=== PATIENT | male | born 1965 | race Caucasian/White ===

== ENCOUNTER 2019-01-26 07:43 | Day surgery (SDC) | payer OTHER ==
[2019-01-23 14:44] VITALS: BMI 26.4
[2019-01-26 10:19] VITALS: TEMP 97.4
[2019-01-26 15:02] VITALS: BP 113/59; PULSE 55
--- NOTE | 2019-01-27 18:39 | PATH ---
Surgical Pathology Report Patient Name: CHEVY PERRY [facility]. Rec. #: [id number] /Age/Gender: 1965 (Age: 53) / M Account: [id number] Location: [facility]-ENDOSCOPY Taken: 01/26/2019 Received: 01/26/2019 Reported: 01/27/2019 Physicians: Aníbal Benoit M.D. Specimen(s) Received #1 POLYP RECTUM X2 Clinical History Screening Postoperative diagnosis: Colon polyp Final Diagnosis RECTAL POLYP X 2, POLYPECTOMY: HYPERPLASTIC POLYP, TWO FRAGMENTS. Electronically Signed Monisha Boo M.D. Gross Description Received in formalin, labeled "polyp rectum" are 3 zambrano, irregular portions of soft tissue ranging from 0.2-0.4 cm. in greatest dimension. The specimens are submitted in toto in one cassette. DL/01/26/2019 saudi01/26/2019
== END 2019-01-26 11:03 | disposition home or self-care (01) ==
LOC: JASU-ENDO 07:43
PROVIDERS: ATTEND Internal Medicine Gastroenterology
PROC: 0DBP8ZX Excision of Rectum, Via Natural or Artificial Opening Endoscopic, Diagnostic (ICD-10-PCS; principal; 2019-01-26 08:45)
DX: Z51.11 Encounter for antineoplastic chemotherapy (principal); K57.30 Diverticulosis of large intestine without perforation or abscess without bleeding; K64.8 Other hemorrhoids; K62.1 Rectal polyp
CPT/HCPCS: 88305-TC

== ENCOUNTER 2020-03-14 12:20 | Emergency (ER) | payer SELFPAY | END 2020-03-14 13:28 | disposition home or self-care (01) | LOC: JVIRT 12:20 | DX: U07.1 COVID-19 (principal) | CPT/HCPCS: C9803; G2012-GT; U0003 ==